=== PATIENT | female | born 1950 | race Caucasian/White ===

== ENCOUNTER 2018-12-11 07:11 | Day surgery (SDC) | payer OTHER ==
[~2018-12-11] VITALS: Ht 152.4 cm; Wt 58.1 kg
[~2018-12-11 07:11] MED LIST: CHOL10002 PO; CLON1 PO; CYAN1000I; FOLI1 PO; GABA300 PO; HYDACE5 PO; HYDR-86 PO; HYDR1TAB94 PO; TIZANIDINE HCL2 MG PO; TRAZ50 PO
--- NOTE | 2018-12-11 11:30 | NUR ---
12/11/18 1130 Yaz Ernandez PT DENIED PAIN UNTIL RIGHT BEFORE GOING OVER D/C INSTRUCTIONS, RX'D WITH IV FENTANYL. DENIES NAUSEA. PT COLD OVER HER RECOVERY PERIOD, GIVEN WARM BLANKETS AND HEAT TURNED UP. PT STABLE, WENT OVER INCENTIVE SPIROMETERY INSTRUCTIONS, AND INFORMED HER OF COUGHING UP GREEN SPUTUM IN THE OR AND TO KEEP AN EYE OUT FOR INCREASED TEMPERATURE AND PRODUCTIVE COLORED SPUTUM SHE NEEDS TO GO SEE HER PRIMARY DOCTOR.
== END 2018-12-11 11:50 | disposition home or self-care (01) ==
LOC: ORSCSDS 07:11
PROVIDERS: Surgery
PROC: 0JB70ZZ Excision of Back Subcutaneous Tissue and Fascia, Open Approach (ICD-10-PCS; principal; 2018-12-11 08:45)
DX: D17.1 Benign lipomatous neoplasm of skin and subcutaneous tissue of trunk (principal); J44.9 Chronic obstructive pulmonary disease, unspecified; F17.210 Nicotine dependence, cigarettes, uncomplicated; Z86.73 Personal history of transient ischemic attack (TIA), and cerebral infarction without residual deficits; Z79.899 Other long term (current) drug therapy
CPT/HCPCS: 88304; J0690; J2250; J3010; J7120

== ENCOUNTER → 2019-02-27 | Outpatient (CLI) | payer OTHER | END | disposition home or self-care (01) | LOC: LAB EV 16:35 → LAB SHORT 16:35 | DX: L08.9 Local infection of the skin and subcutaneous tissue, unspecified (principal) | CPT/HCPCS: 87070; 87075; 87186; 87205 ==

== ENCOUNTER → 2020-01-31 | Outpatient (CLI) | payer OTHER | END | disposition home or self-care (01) | LOC: LAB SHORT 10:59 → PLD 10:59 | DX: R23.4 Changes in skin texture (principal) | CPT/HCPCS: 87220; 88305; 88312 ==

== ENCOUNTER 2021-08-29 21:52 | Emergency (ER) | payer OTHER ==
[~2021-08-29] VITALS: Ht 152.4 cm; Wt 50.8 kg
[2021-08-29 22:26] LABS: BASOPHILS ABSOLUTE AUTO 0.07 K/mm3 (0.00-0.23); BASOPHILS PERCENT AUTO 1 % (0-2); EOSINOPHILS PERCENT AUTO 0 % (0-6); Hematocrit 33.1 % (33.0-51.0); Hemoglobin 12.2 g/dL (11.5-16.0); IMMATURE GRAN ABSOLUTE AUTO 0.02 K/mm3 (0.00-0.10); IMMATURE GRAN PERCENT AUTO 0 % (0-1); LYMPHOCYTES ABSOLUTE AUTO 1.79 K/mm3 (0.84-5.20); LYMPHOCYTES PERCENT AUTO 27 % (21-46); MONOCYTES ABSOLUTE AUTO 0.91 K/mm3 (0.16-1.47); MONOCYTES PERCENT AUTO 14 % (4-13); Mean Corpuscular HGB 37.7 pg (26.0-34.0); Mean Corpuscular HGB Conc 36.9 g/dL (31.5-36.5); Mean Corpuscular Volume 102 fL (80-100); Mean Platelet Volume 9.9 fL (9.1-12.4); NEUTROPHILS ABSOLUTE AUTO 3.92 K/mm3 (1.96-9.15); NEUTROPHILS PERCENT AUTO 58 % (41-73); Platelet Count 336 K/mm3 (150-400); RDW Coefficient Variation 14.3 % (11.7-14.2); RDW Standard Deviation 48.4 fL (35.1-46.3); Red Blood Cell Count 3.24 M/mm3 (3.80-5.20); White Blood Cell Count 6.71 K/mm3 (4.00-11.30)
[2021-08-29] MEDS ORDERED: ROSU5 PO (22:26)
[2021-08-29 22:43] LABS: Alanine Aminotransfer (ALT/SGP 23 U/L (12-78); Albumin, Blood 3.6 g/dL (3.4-5.0); Albumin/Globulin Ratio 0.9 (0.8-1.8); Alk Phos 86 U/L (50-136); Anion Gap 5 mmol/L (6-16); Aspartate Aminotrans (AST/SGOT 21 U/L (12-37); Bilirubin, Total 0.5 mg/dL (0.1-1.0); Blood Urea Nitrogen 14 mg/dL (8-24); CO2, Blood 29 mmol/L (21-32); Calcium, Blood 10.8 mg/dL (8.5-10.1); Chloride, Blood 107 mmol/L (98-108); Creatinine, Blood 0.74 mg/dL (0.40-1.00); Glomerular Filtration Rate >60 (60-); Glucose, Blood 114 mg/dL (70-99); Magnesium, Blood 1.6 mg/dL (1.6-2.4); Potassium, Blood 3.8 mmol/L (3.5-5.5); Sodium, Blood 141 mmol/L (136-145); Total Protein, Blood 7.6 g/dL (6.4-8.2)
== END 2021-08-29 23:57 | disposition home or self-care (01) ==
LOC: ER 21:52
PROVIDERS: Emergency Medicine
DX: K59.00 Constipation, unspecified (principal); F17.200 Nicotine dependence, unspecified, uncomplicated; Z88.8 Allergy status to other drugs, medicaments and biological substances; Z79.899 Other long term (current) drug therapy
CPT/HCPCS: 74176; 80053; 83690; 83735; 84145; 85025; 96361; 96374; 99284-25; A9270; J1170; J7030

== ENCOUNTER 2024-09-10 10:40 | Emergency (ER) | payer OTHER ==
[~2024-09-10] VITALS: Ht 152.4 cm; Wt 52.2 kg
[~2024-09-10 10:40] MED LIST changes: +ROSU5 PO
[2024-09-10] MEDS ORDERED: Fluorescein Sod 1MG Opth Strips RIGHTEYE ONE (12:05)
[2024-09-10] MEDS ORDERED: Tetracaine HCl/Pf 0.5% Opth Soln 4 ml RIGHTEYE ONE (12:05)
[2024-09-10 12:15] LABS: BASOPHILS ABSOLUTE AUTO 0.06 K/mm3 (0.00-0.23); BASOPHILS PERCENT AUTO 1 % (0-2); EOSINOPHILS PERCENT AUTO 0 % (0-6); Hematocrit 32.3 % (33.0-51.0); Hemoglobin 11.8 g/dL (11.5-16.0); IMMATURE GRAN ABSOLUTE AUTO 0.02 K/mm3 (0.00-0.10); IMMATURE GRAN PERCENT AUTO 0 % (0-1); LYMPHOCYTES ABSOLUTE AUTO 1.31 K/mm3 (0.84-5.20); LYMPHOCYTES PERCENT AUTO 18 % (21-46); MONOCYTES ABSOLUTE AUTO 0.93 K/mm3 (0.16-1.47); MONOCYTES PERCENT AUTO 13 % (4-13); Mean Corpuscular HGB 39.1 pg (26.0-34.0); Mean Corpuscular HGB Conc 36.5 g/dL (31.5-36.5); Mean Corpuscular Volume 107 fL (80-100); Mean Platelet Volume 9.8 fL (9.1-12.4); NEUTROPHILS ABSOLUTE AUTO 4.83 K/mm3 (1.96-9.15); NEUTROPHILS PERCENT AUTO 68 % (41-73); Platelet Count 313 K/mm3 (150-400); RDW Coefficient Variation 14.2 % (11.7-14.2); RDW Standard Deviation 50.2 fL (35.1-46.3); Red Blood Cell Count 3.02 M/mm3 (3.80-5.20); White Blood Cell Count 7.15 K/mm3 (4.00-11.30)
[2024-09-10 12:33] LABS: Albumin, Blood 3.6 g/dL (3.4-5.0); Albumin/Globulin Ratio 1.1 (0.8-1.8); Bilirubin, Total 0.6 mg/dL (0.1-1.0); Bun/Creatinine Ratio 20.6 (12.0-20.0); Calcium, Blood 9.4 mg/dL (8.5-10.1); Creatinine, Blood 0.58 mg/dL (0.40-1.00); Globulin, Blood 3.4 g/dL (2.2-4.0); Potassium, Blood 4.1 mmol/L (3.5-5.5)
[2024-09-10 14:55] VITALS: BP 130/71
== END 2024-09-10 15:46 | disposition home or self-care (01) ==
LOC: ER 10:40
PROVIDERS: Student in an Organized Health Care Education/Training Program
DX: H53.9 Unspecified visual disturbance (principal); F17.200 Nicotine dependence, unspecified, uncomplicated; E78.00 Pure hypercholesterolemia, unspecified; Z79.899 Other long term (current) drug therapy; Z88.5 Allergy status to narcotic agent; Z88.8 Allergy status to other drugs, medicaments and biological substances
CPT/HCPCS: 70450; 70496; 80053; 85025; 99284-25; A9270; Q9967

== ENCOUNTER 2024-12-01 13:12 | Day surgery (SDC) | payer OTHER ==
[~2024-12-01] VITALS: Ht 152.4 cm; Wt 51.3 kg
[~2024-12-01 13:12] MED LIST changes: +B-12 COMPL1000 MCG/2 IM; +FOLIC ACID PO; +Lactated Ringer's 1,000 ML IV ONE; +MELO7.5 PO; +ROSUVASTATIN CA10 MG PO; +TIZANIDINE HCL2 M1 PO; +VITAMIN D5000 UNIT PO
[2024-12-01] MEDS ORDERED: Lactated Ringer's 1,000 ML IV ONE (13:59)
--- NOTE | 2024-12-01 15:06 | NUR ---
12/01/24 1506 Yaz Ernandez PT UPDATED ON DELAY IN START TIME DUE TO ANESTHESIA PROVIDER IS IN A CASE IN THE OR PRIOR TO STARTING THIS CASE. BED IN LOW, LOCKED POSITION, CALL LIGHT IN REACH.
[2024-12-01] MEDS ORDERED: propofoL 50 ML IV ONE (15:44)
[2024-12-01 17:09] VITALS: BP 120/71
== END 2024-12-01 17:05 | disposition home or self-care (01) ==
LOC: ORSCSDS 13:12
PROVIDERS: Internal Medicine Gastroenterology
PROC: 0DBL8ZX Excision of Transverse Colon, Via Natural or Artificial Opening Endoscopic, Diagnostic (ICD-10-PCS; principal; 2024-12-01 14:45)
DX: Z12.11 Encounter for screening for malignant neoplasm of colon (principal); D12.3 Benign neoplasm of transverse colon; K57.30 Diverticulosis of large intestine without perforation or abscess without bleeding; Z86.0101 Personal history of adenomatous and serrated colon polyps; G25.81 Restless legs syndrome; J44.9 Chronic obstructive pulmonary disease, unspecified; Z86.73 Personal history of transient ischemic attack (TIA), and cerebral infarction without residual deficits; Z79.899 Other long term (current) drug therapy; F17.210 Nicotine dependence, cigarettes, uncomplicated
CPT/HCPCS: 88305; J2704; J7120

== ENCOUNTER → 2025-01-15 | Outpatient (CLI) | payer OTHER ==
[~2025-01-15] MED LIST changes: -Lactated Ringer's 1,000 ML IV ONE
== END ==
LOC: LAB 10:36 → LAB SHORT 10:36
DX: B99.9 Unspecified infectious disease (principal)
CPT/HCPCS: 87070; 87075; 87205